=== PATIENT | male | born 1950 | race Caucasian/White ===

== ENCOUNTER 2016-07-23 15:50 | Inpatient (IN) | payer MEDICARE, OTHER ==
[~2016-07-23] VITALS: Ht 180.3 cm; Wt 89.8 kg
[2016-07-23 16:00] VITALS: BP 136/83
[2016-07-23] MEDS ORDERED: IPRATROPIUM BROMIDE 0.5 MG/2.5 ML NEB SOLUTION NEB PRN (17:15)
[2016-07-23] MEDS ORDERED: ACETAMINOPHEN 325 MG TABLET PO PRN (17:15)
[2016-07-23] MEDS ORDERED: ALBUTEROL SULFATE 2.5 MG/0.5 ML NEB SOLUTION NEB PRN (17:15)
[2016-07-23 18:29] LABS: APPEARANCE,URINE CLOUDY (CLEAR); GLUCOSE, URINE (UA) NEGATIVE (NEGATIVE); KETONES,URINE NEGATIVE (NEGATIVE); LEUKOCYTE ESTERASE ,URINE LARGE (NEGATIVE); OCCULT BLOOD,URINE SMALL (NEGATIVE); PROTEIN,URINE NEGATIVE (NEGATIVE)
[2016-07-23 18:35] LABS: ADD UA MICROSCOPIC YES; SQUAMOUS EPITHELIAL CELL,UR Rare /LPF (None Seen); WBC,URINE >100 /HPF (0-5)
[2016-07-23] MEDS: RIVAROXABAN 20 MG TABLET PO SCH (19:36)
[2016-07-23] MEDS: SENNA 187 MG TABLET PO SCH (20:39)
[2016-07-23] MEDS: DOXAZOSIN MESYLATE 2 MG TABLET PO SCH (20:39)
[2016-07-23] MEDS: ATORVASTATIN CALCIUM 40 MG TABLET PO SCH (20:39)
[2016-07-23] MEDS: DOCUSATE SODIUM 100 MG CAPSULE PO SCH (20:39)
[2016-07-23] MEDS ORDERED: QUEtiapine FUMARATE 25 MG TABLET PO SCH (21:00)
[2016-07-24 00:28] VITALS: BP 100/60
[2016-07-24 06:43] LABS: BASOPHILS % (AUTO) 0.7 % (0.0-2.0); EOSINOPHILS % (AUTO) 2.6 % (1.0-6.0); HEMATOCRIT 46.2 % (41-53); HEMOGLOBIN 14.7 g/dL (13.5-17.5); LYMPHOCYTES # (AUTO) 1.8 K/uL (1.0-4.8); LYMPHOCYTES % (AUTO) 20.2 % (22.0-44.0); MEAN CORPUSCULAR HEMOGLOBIN 29.2 pg (26.0-34.0); MEAN CORPUSCULAR HGB CONC 31.7 G/dL (31.0-37.0); MEAN CORPUSCULAR VOLUME 92 fL (80-100); MONOCYTES % (AUTO) 11.3 % (2.0-9.0); NEUTROPHILS # (AUTO) 5.8 K/uL (1.8-7.7); NEUTROPHILS % (AUTO) 65.2 % (40.0-70.0); PLATELET COUNT (AUTO) 135 K/uL (150-450); RED BLOOD CELL COUNT(AUTO) 5.03 MIL/uL (4.50-5.90); RED CELL DISTRIBUTION WIDTH 14.3 % (11.5-14.5); WHITE BLOOD COUNT (AUTO) 8.9 K/uL (4.5-11.0)
[2016-07-24 07:05] LABS: ALANINE AMINOTRANSFERASE 27 U/L (12-78); ALBUMIN 3.5 g/dL (3.4-5.0); ANION GAP 8 mmol/L (8-16); ASPARTATE AMINOTRANSFERASE 12 U/L (15-37); BILIRUBIN,TOTAL 0.7 mg/dL (0.1-1.0); CARBON DIOXIDE 29 mmol/L (22-29); CHLORIDE 102 mmol/L (98-107); CREATININE 1.12 mg/dL (0.60-1.30); GLOMERULAR FILTR. RATE CALC > 60 mL/min (>60); POTASSIUM 3.8 mmol/L (3.5-5.1); SODIUM SERUM 139 mmol/L (136-145); TOTAL PROTEIN, SERUM 7.2 g/dL (6.4-8.2); UREA NITROGEN, BLOOD 12 mg/dL (7-18)
[2016-07-24 07:15] VITALS: BP 131/82
[2016-07-24] MEDS: ARIPiprazole 5 MG TABLET PO SCH (08:36)
[2016-07-24] MEDS: ASPIRIN 81 MG CHEWABLE TABLET PO SCH (08:36)
[2016-07-24] MEDS: BuPROPion HCL 150 MG SR TABLET PO SCH ×2 (08:37→13:05)
[2016-07-24] MEDS: DOCUSATE SODIUM 100 MG CAPSULE PO SCH ×2 (08:37→21:10)
[2016-07-24] MEDS: DILTIAZEM HCL CD 120 MG ER CAPSULE PO SCH (08:37)
[2016-07-24 15:36] VITALS: BP 130/90
[2016-07-24] MEDS: RIVAROXABAN 20 MG TABLET PO SCH (17:13)
[2016-07-24] MEDS ORDERED: QUEtiapine FUMARATE 25 MG TABLET PO PRN (21:00)
[2016-07-24] MEDS: SENNA 187 MG TABLET PO SCH (21:10)
[2016-07-24] MEDS: ATORVASTATIN CALCIUM 40 MG TABLET PO SCH (21:10)
[2016-07-24] MEDS: DOXAZOSIN MESYLATE 2 MG TABLET PO SCH (21:10)
[2016-07-24 21:27] VITALS: BP 110/58
[2016-07-24 23:30] VITALS: BP 119/83
[2016-07-25 07:16] VITALS: BP 138/88
[2016-07-25] MEDS: BuPROPion HCL 150 MG SR TABLET PO SCH ×2 (08:11→11:44)
[2016-07-25] MEDS: DOCUSATE SODIUM 100 MG CAPSULE PO SCH ×2 (08:11→21:23)
[2016-07-25] MEDS: ASPIRIN 81 MG CHEWABLE TABLET PO SCH (08:11)
[2016-07-25] MEDS: ARIPiprazole 5 MG TABLET PO SCH (08:11)
[2016-07-25] MEDS: DILTIAZEM HCL CD 120 MG ER CAPSULE PO SCH (08:11)
[2016-07-25] MEDS: SULFAMETHOX/TRIMETH DS 800-160 MG/TABLET PO SCH ×2 (11:44→21:23)
[2016-07-25 15:38] VITALS: BP 153/89
[2016-07-25] MEDS: RIVAROXABAN 20 MG TABLET PO SCH (16:41)
[2016-07-25 20:30] VITALS: BP 96/54
[2016-07-25] MEDS: DOXAZOSIN MESYLATE 2 MG TABLET PO SCH ×2 (21:00→21:24)
[2016-07-25] MEDS: ATORVASTATIN CALCIUM 40 MG TABLET PO SCH (21:23)
[2016-07-25] MEDS: SENNA 187 MG TABLET PO SCH (21:23)
[2016-07-26] VITALS: BP 91/61
[2016-07-26 06:00] VITALS: BP 110/67
[2016-07-26 07:30] VITALS: BP 120/87
[2016-07-26 07:47] LABS: ANION GAP 7 mmol/L (8-16); CALCIUM, TOTAL 8.9 mg/dL (8.8-10.5); CARBON DIOXIDE 28 mmol/L (22-29); CHLORIDE 101 mmol/L (98-107); CREATININE 1.03 mg/dL (0.60-1.30); GLOMERULAR FILTR. RATE CALC > 60 mL/min (>60); SODIUM SERUM 136 mmol/L (136-145); UREA NITROGEN, BLOOD 14 mg/dL (7-18)
[2016-07-26] MEDS: DOCUSATE SODIUM 100 MG CAPSULE PO SCH ×2 (08:43→20:16)
[2016-07-26] MEDS: DILTIAZEM HCL CD 120 MG ER CAPSULE PO SCH (08:43)
[2016-07-26] MEDS: ARIPiprazole 5 MG TABLET PO SCH (08:43)
[2016-07-26] MEDS: BuPROPion HCL 150 MG SR TABLET PO SCH ×2 (08:44→12:37)
[2016-07-26] MEDS: ASPIRIN 81 MG CHEWABLE TABLET PO SCH (08:44)
[2016-07-26] MEDS: SULFAMETHOX/TRIMETH DS 800-160 MG/TABLET PO SCH ×2 (08:44→20:16)
[2016-07-26 15:07] VITALS: BP 107/71
[2016-07-26] MEDS: APIXABAN 5 MG TABLET PO SCH (20:16)
[2016-07-26] MEDS: SENNA 187 MG TABLET PO SCH (20:16)
[2016-07-26] MEDS: ATORVASTATIN CALCIUM 40 MG TABLET PO SCH (20:16)
[2016-07-26] MEDS: DOXAZOSIN MESYLATE 2 MG TABLET PO SCH (20:16)
[2016-07-26 20:20] VITALS: BP 110/78
[2016-07-27] VITALS (10 sets, daily range): BP systolic 97–129; BP diastolic 60–96
[2016-07-27 07:05] LABS: ANION GAP 7 mmol/L (8-16); CARBON DIOXIDE 27 mmol/L (22-29); CHLORIDE 101 mmol/L (98-107); CREATININE 0.94 mg/dL (0.60-1.30); GLOMERULAR FILTR. RATE CALC > 60 mL/min (>60); POTASSIUM 4.2 mmol/L (3.5-5.1); SODIUM SERUM 135 mmol/L (136-145); UREA NITROGEN, BLOOD 12 mg/dL (7-18)
[2016-07-27] MEDS: DOCUSATE SODIUM 100 MG CAPSULE PO SCH ×2 (08:34→20:23)
[2016-07-27] MEDS: ARIPiprazole 5 MG TABLET PO SCH (08:34)
[2016-07-27] MEDS: SULFAMETHOX/TRIMETH DS 800-160 MG/TABLET PO SCH ×2 (08:34→20:23)
[2016-07-27] MEDS: ASPIRIN 81 MG CHEWABLE TABLET PO SCH (08:34)
[2016-07-27] MEDS: BuPROPion HCL 150 MG SR TABLET PO SCH ×2 (08:35→12:18)
[2016-07-27] MEDS: DILTIAZEM HCL CD 120 MG ER CAPSULE PO SCH ×4 (08:35→12:23)
[2016-07-27] MEDS: APIXABAN 5 MG TABLET PO SCH ×2 (08:35→20:23)
[2016-07-27] MEDS: DOXAZOSIN MESYLATE 2 MG TABLET PO SCH (20:23)
[2016-07-27] MEDS: ATORVASTATIN CALCIUM 40 MG TABLET PO SCH (20:23)
[2016-07-27] MEDS: SENNA 187 MG TABLET PO SCH (20:23)
[2016-07-27] MEDS: DOCUSATE SODIUM 283 MG/5 ML MINI-ENEMA PR PRN (20:33)
[2016-07-28 07:08] LABS: ANION GAP 8 mmol/L (8-16); CALCIUM, TOTAL 8.9 mg/dL (8.8-10.5); CARBON DIOXIDE 27 mmol/L (22-29); CHLORIDE 100 mmol/L (98-107); GLOMERULAR FILTR. RATE CALC > 60 mL/min (>60); POTASSIUM 3.9 mmol/L (3.5-5.1); SODIUM SERUM 135 mmol/L (136-145); UREA NITROGEN, BLOOD 14 mg/dL (7-18)
[2016-07-28 07:35] VITALS: BP 113/72
[2016-07-28 08:30] VITALS: BP 126/88
[2016-07-28] MEDS: BuPROPion HCL 150 MG SR TABLET PO SCH ×2 (08:30→11:12)
[2016-07-28] MEDS: DOCUSATE SODIUM 100 MG CAPSULE PO SCH ×2 (08:30→20:29)
[2016-07-28] MEDS: SULFAMETHOX/TRIMETH DS 800-160 MG/TABLET PO SCH ×2 (08:30→20:29)
[2016-07-28] MEDS: ASPIRIN 81 MG CHEWABLE TABLET PO SCH (08:30)
[2016-07-28] MEDS: DILTIAZEM HCL CD 120 MG ER CAPSULE PO SCH (08:32)
[2016-07-28] MEDS: APIXABAN 5 MG TABLET PO SCH ×2 (08:32→20:29)
[2016-07-28] MEDS: ARIPiprazole 5 MG TABLET PO SCH (08:32)
[2016-07-28 15:19] VITALS: BP 124/75
[2016-07-28] MEDS: DOCUSATE SODIUM 283 MG/5 ML MINI-ENEMA PR PRN (18:14)
[2016-07-28 20:27] VITALS: BP 107/71
[2016-07-28] MEDS: ATORVASTATIN CALCIUM 40 MG TABLET PO SCH (20:29)
[2016-07-28] MEDS: DOXAZOSIN MESYLATE 2 MG TABLET PO SCH (20:29)
[2016-07-28] MEDS: SENNA 187 MG TABLET PO SCH (20:29)
[2016-07-28 23:00] VITALS: BP 107/59
[2016-07-28 23:34] VITALS: BP 138/98
[2016-07-29 07:37] VITALS: BP 115/75
[2016-07-29] MEDS: DOCUSATE SODIUM 250 MG CAPSULE PO SCH ×2 (08:28→21:16)
[2016-07-29] MEDS: ARIPiprazole 5 MG TABLET PO SCH (08:29)
[2016-07-29] MEDS: ASPIRIN 81 MG CHEWABLE TABLET PO SCH (08:29)
[2016-07-29] MEDS: DILTIAZEM HCL CD 120 MG ER CAPSULE PO SCH (08:29)
[2016-07-29] MEDS: APIXABAN 5 MG TABLET PO SCH ×2 (08:30→21:16)
[2016-07-29] MEDS: SULFAMETHOX/TRIMETH DS 800-160 MG/TABLET PO SCH ×2 (08:30→21:16)
[2016-07-29] MEDS: BuPROPion HCL 150 MG SR TABLET PO SCH ×2 (08:30→12:27)
[2016-07-29 15:00] VITALS: BP 132/71
[2016-07-29] MEDS: DOCUSATE SODIUM 283 MG/5 ML MINI-ENEMA PR PRN (19:21)
[2016-07-29] MEDS: DOXAZOSIN MESYLATE 2 MG TABLET PO SCH (21:00)
[2016-07-29 21:10] VITALS: BP 94/59
[2016-07-29] MEDS: ATORVASTATIN CALCIUM 40 MG TABLET PO SCH (21:16)
[2016-07-29] MEDS: SENNA 187 MG TABLET PO SCH (21:17)
[2016-07-29 23:51] VITALS: BP 96/60
[2016-07-30 07:25] VITALS: BP 115/71
[2016-07-30] MEDS: DIGOXIN 125 MCG TABLET PO SCH (08:29)
[2016-07-30] MEDS: SULFAMETHOX/TRIMETH DS 800-160 MG/TABLET PO SCH ×2 (08:29→20:10)
[2016-07-30] MEDS: BuPROPion HCL 150 MG SR TABLET PO SCH ×2 (08:29→12:31)
[2016-07-30] MEDS: APIXABAN 5 MG TABLET PO SCH ×2 (08:29→20:10)
[2016-07-30] MEDS: DILTIAZEM HCL CD 120 MG ER CAPSULE PO SCH (08:29)
[2016-07-30] MEDS: ARIPiprazole 5 MG TABLET PO SCH (08:29)
[2016-07-30] MEDS: ASPIRIN 81 MG CHEWABLE TABLET PO SCH (08:29)
[2016-07-30] MEDS: DOCUSATE SODIUM 250 MG CAPSULE PO SCH ×2 (08:29→20:10)
[2016-07-30 16:53] VITALS: BP 112/71
[2016-07-30] MEDS: ATORVASTATIN CALCIUM 40 MG TABLET PO SCH (20:10)
[2016-07-30] MEDS: SENNA 187 MG TABLET PO SCH (20:10)
[2016-07-30] MEDS: DOXAZOSIN MESYLATE 2 MG TABLET PO SCH (20:10)
[2016-07-30 20:13] VITALS: BP 137/53
[2016-07-31 00:22] VITALS: BP 110/54
[2016-07-31 07:42] VITALS: BP 104/66
[2016-07-31] MEDS: DOCUSATE SODIUM 250 MG CAPSULE PO SCH ×2 (09:20→20:33)
[2016-07-31] MEDS: ASPIRIN 81 MG CHEWABLE TABLET PO SCH (09:20)
[2016-07-31] MEDS: DILTIAZEM HCL CD 120 MG ER CAPSULE PO SCH (09:20)
[2016-07-31] MEDS: SULFAMETHOX/TRIMETH DS 800-160 MG/TABLET PO SCH ×2 (09:20→20:32)
[2016-07-31] MEDS: DIGOXIN 125 MCG TABLET PO SCH (09:21)
[2016-07-31] MEDS: ARIPiprazole 5 MG TABLET PO SCH (09:21)
[2016-07-31] MEDS: APIXABAN 5 MG TABLET PO SCH ×2 (09:21→20:33)
[2016-07-31] MEDS: BuPROPion HCL 150 MG SR TABLET PO SCH ×2 (09:21→13:10)
[2016-07-31 10:35] VITALS: BP 128/95
[2016-07-31 14:52] VITALS: BP 111/74
[2016-07-31] MEDS: DOCUSATE SODIUM 283 MG/5 ML MINI-ENEMA PR PRN (18:05)
[2016-07-31] MEDS ORDERED: PHENYLEPHRINE/SHK LV/MIN OIL/PET 57 GM OINTMENT TP PRN (18:30)
[2016-07-31] MEDS ORDERED: LACTULOSE 20 GM/30 ML SOLUTION UDCUP PO PRN (18:30)
[2016-07-31 20:30] VITALS: BP 115/80
[2016-07-31] MEDS: SENNA 187 MG TABLET PO SCH (20:32)
[2016-07-31] MEDS: ATORVASTATIN CALCIUM 40 MG TABLET PO SCH (20:32)
[2016-07-31] MEDS: DOXAZOSIN MESYLATE 2 MG TABLET PO SCH (20:32)
[2016-07-31] MEDS: LACTULOSE 20 GM/30 ML SOLUTION UDCUP PO PRN (20:35)
[2016-08-01 00:50] VITALS: BP 125/71
[2016-08-01 08:41] VITALS: BP 104/64
[2016-08-01] MEDS: ARIPiprazole 5 MG TABLET PO SCH (08:49)
[2016-08-01] MEDS: ASPIRIN 81 MG CHEWABLE TABLET PO SCH (08:49)
[2016-08-01] MEDS: DOCUSATE SODIUM 250 MG CAPSULE PO SCH ×3 (08:50→19:49)
[2016-08-01] MEDS: SULFAMETHOX/TRIMETH DS 800-160 MG/TABLET PO SCH ×2 (08:50→19:46)
[2016-08-01] MEDS: APIXABAN 5 MG TABLET PO SCH ×2 (08:50→19:46)
[2016-08-01] MEDS: DILTIAZEM HCL CD 120 MG ER CAPSULE PO SCH (08:50)
[2016-08-01] MEDS: DIGOXIN 125 MCG TABLET PO SCH (08:50)
[2016-08-01] MEDS: BuPROPion HCL 150 MG SR TABLET PO SCH ×2 (08:51→12:56)
[2016-08-01] MEDS: POLYETHYLENE GLYCOL 3350 17 GM PACKET PO SCH (10:49)
[2016-08-01 15:00] VITALS: BP 110/72
[2016-08-01] MEDS: SENNA 187 MG TABLET PO SCH (19:46)
[2016-08-01] MEDS: ATORVASTATIN CALCIUM 40 MG TABLET PO SCH (19:46)
[2016-08-01] MEDS: DOXAZOSIN MESYLATE 2 MG TABLET PO SCH (19:46)
[2016-08-02] VITALS: BP 121/70
[2016-08-02 07:28] VITALS: BP 112/77
[2016-08-02] MEDS: ARIPiprazole 5 MG TABLET PO SCH (08:35)
[2016-08-02] MEDS: DOCUSATE SODIUM 250 MG CAPSULE PO SCH ×2 (08:35→21:33)
[2016-08-02] MEDS: ASPIRIN 81 MG CHEWABLE TABLET PO SCH (08:35)
[2016-08-02] MEDS: POLYETHYLENE GLYCOL 3350 17 GM PACKET PO SCH (08:35)
[2016-08-02] MEDS: SULFAMETHOX/TRIMETH DS 800-160 MG/TABLET PO SCH ×2 (08:36→21:32)
[2016-08-02] MEDS: APIXABAN 5 MG TABLET PO SCH ×2 (08:36→21:32)
[2016-08-02] MEDS: DILTIAZEM HCL CD 120 MG ER CAPSULE PO SCH (08:36)
[2016-08-02] MEDS: DIGOXIN 125 MCG TABLET PO SCH (08:36)
[2016-08-02] MEDS: BuPROPion HCL 150 MG SR TABLET PO SCH ×2 (08:38→12:25)
[2016-08-02 18:46] VITALS: BP 114/86
[2016-08-02] MEDS: DOXAZOSIN MESYLATE 2 MG TABLET PO SCH (21:32)
[2016-08-02] MEDS: SENNA 187 MG TABLET PO SCH (21:33)
[2016-08-02] MEDS: ATORVASTATIN CALCIUM 40 MG TABLET PO SCH (21:33)
[2016-08-02 23:06] VITALS: BP 108/62
[2016-08-03] VITALS: BP 129/78
[2016-08-03] MEDS: DOCUSATE SODIUM 283 MG/5 ML MINI-ENEMA PR PRN (02:20)
[2016-08-03] MEDS: LACTULOSE 20 GM/30 ML SOLUTION UDCUP PO PRN (05:50)
[2016-08-03 07:30] VITALS: BP 132/92
[2016-08-03] MEDS: DOCUSATE SODIUM 250 MG CAPSULE PO SCH ×2 (08:36→20:40)
[2016-08-03] MEDS: APIXABAN 5 MG TABLET PO SCH ×2 (08:36→20:40)
[2016-08-03] MEDS: DIGOXIN 125 MCG TABLET PO SCH (08:36)
[2016-08-03] MEDS: ARIPiprazole 5 MG TABLET PO SCH (08:36)
[2016-08-03] MEDS: POLYETHYLENE GLYCOL 3350 17 GM PACKET PO SCH (08:36)
[2016-08-03] MEDS: BuPROPion HCL 150 MG SR TABLET PO SCH ×2 (08:39→12:34)
[2016-08-03] MEDS: DILTIAZEM HCL CD 120 MG ER CAPSULE PO SCH (08:40)
[2016-08-03] MEDS: ASPIRIN 81 MG CHEWABLE TABLET PO SCH (08:40)
[2016-08-03] MEDS: SULFAMETHOX/TRIMETH DS 800-160 MG/TABLET PO SCH (08:40)
[2016-08-03 15:38] VITALS: BP 107/70
[2016-08-03] MEDS: SENNA 187 MG TABLET PO SCH (20:40)
[2016-08-03] MEDS: DOXAZOSIN MESYLATE 2 MG TABLET PO SCH (20:40)
[2016-08-03] MEDS: ATORVASTATIN CALCIUM 40 MG TABLET PO SCH (20:40)
[2016-08-03 23:45] VITALS: BP 138/85
[2016-08-04 08:00] VITALS: BP 99/59
[2016-08-04] MEDS: DIGOXIN 125 MCG TABLET PO SCH (08:50)
[2016-08-04] MEDS: POLYETHYLENE GLYCOL 3350 17 GM PACKET PO SCH (08:50)
[2016-08-04] MEDS: DILTIAZEM HCL CD 120 MG ER CAPSULE PO SCH (08:50)
[2016-08-04] MEDS: BuPROPion HCL 150 MG SR TABLET PO SCH ×2 (08:50→12:37)
[2016-08-04] MEDS: ARIPiprazole 5 MG TABLET PO SCH (08:50)
[2016-08-04] MEDS: ASPIRIN 81 MG CHEWABLE TABLET PO SCH (08:51)
[2016-08-04] MEDS: APIXABAN 5 MG TABLET PO SCH ×2 (08:52→20:22)
[2016-08-04] MEDS: DOCUSATE SODIUM 250 MG CAPSULE PO SCH ×2 (08:52→20:22)
[2016-08-04 15:18] VITALS: BP 106/61
[2016-08-04] MEDS: SENNA 187 MG TABLET PO SCH (20:22)
[2016-08-04] MEDS: ATORVASTATIN CALCIUM 40 MG TABLET PO SCH (20:22)
[2016-08-04] MEDS: DOXAZOSIN MESYLATE 2 MG TABLET PO SCH (20:22)
[2016-08-05] VITALS: BP 106/73
[2016-08-05] MEDS ORDERED: QUET25TA PO (01:40)
[2016-08-05] MEDS ORDERED: ARIP5TAB9 PO (01:40)
[2016-08-05] MEDS ORDERED: DOXA2TAB PO (01:40)
[2016-08-05] MEDS ORDERED: BUPR100SR PO (01:40)
[2016-08-05] MEDS ORDERED: WARF1 PO (01:40)
[2016-08-05] MEDS ORDERED: ATOR40TA28 PO (01:40)
[2016-08-05 02:00] LABS: APPEARANCE,URINE CLEAR (CLEAR); GLUCOSE, URINE (UA) NEGATIVE (NEGATIVE); KETONES,URINE NEGATIVE (NEGATIVE); LEUKOCYTE ESTERASE ,URINE NEGATIVE (NEGATIVE); OCCULT BLOOD,URINE NEGATIVE (NEGATIVE); PROTEIN,URINE NEGATIVE (NEGATIVE)
[2016-08-05 03:10] LABS: RBC,URINE None Seen /HPF (0-2); WBC,URINE None Seen /HPF (0-5)
[2016-08-05 08:35] VITALS: BP 112/72
[2016-08-05] MEDS: DOCUSATE SODIUM 250 MG CAPSULE PO SCH ×2 (08:45→20:21)
[2016-08-05] MEDS: BuPROPion HCL 150 MG SR TABLET PO SCH ×2 (08:45→12:39)
[2016-08-05] MEDS: ASPIRIN 81 MG CHEWABLE TABLET PO SCH (08:45)
[2016-08-05] MEDS: DILTIAZEM HCL CD 120 MG ER CAPSULE PO SCH (08:45)
[2016-08-05] MEDS: ARIPiprazole 5 MG TABLET PO SCH (08:45)
[2016-08-05] MEDS: DIGOXIN 125 MCG TABLET PO SCH (08:45)
[2016-08-05] MEDS: APIXABAN 5 MG TABLET PO SCH ×2 (08:45→20:21)
[2016-08-05] MEDS: POLYETHYLENE GLYCOL 3350 17 GM PACKET PO SCH (08:46)
[2016-08-05 16:13] VITALS: BP 98/63
[2016-08-05] MEDS: DOXAZOSIN MESYLATE 2 MG TABLET PO SCH (20:21)
[2016-08-05] MEDS: SENNA 187 MG TABLET PO SCH (20:21)
[2016-08-05] MEDS: ATORVASTATIN CALCIUM 40 MG TABLET PO SCH (20:21)
[2016-08-05 20:22] VITALS: BP 130/54
[2016-08-06] MEDS ORDERED: BUPR100SR PO (03:38)
[2016-08-06 03:41] VITALS: BP 121/58
[2016-08-06] MEDS ORDERED: MIRALAX PO (03:41)
[2016-08-06] MEDS ORDERED: DILT120C3 PO (03:44)
[2016-08-06] MEDS ORDERED: ASPI-1093 PO (03:44)
[2016-08-06] MEDS ORDERED: DIGO125T PO (03:44)
[2016-08-06] MEDS ORDERED: DOCU250C91 PO (03:44)
[2016-08-06] MEDS ORDERED: APIX5TAB PO (03:44)
[2016-08-06 07:25] VITALS: BP 100/67
[2016-08-06 09:00] VITALS: BP 108/79
[2016-08-06] MEDS: ARIPiprazole 5 MG TABLET PO SCH (09:01)
[2016-08-06] MEDS: ASPIRIN 81 MG CHEWABLE TABLET PO SCH (09:01)
[2016-08-06] MEDS: DOCUSATE SODIUM 250 MG CAPSULE PO SCH (09:01)
[2016-08-06] MEDS: APIXABAN 5 MG TABLET PO SCH (09:01)
[2016-08-06] MEDS: POLYETHYLENE GLYCOL 3350 17 GM PACKET PO SCH (09:01)
[2016-08-06] MEDS: BuPROPion HCL 150 MG SR TABLET PO SCH ×2 (09:02→11:53)
[2016-08-06] MEDS: DIGOXIN 125 MCG TABLET PO SCH (09:02)
[2016-08-06] MEDS: DILTIAZEM HCL CD 120 MG ER CAPSULE PO SCH (09:02)
== END 2016-08-06 17:50 | disposition home health service (06) | DRG 64 ==
LOC: 2WR 15:50
PROVIDERS: ADMIT Physical Medicine & Rehabilitation; ATTEND Physical Medicine & Rehabilitation
DX: I61.5 Nontraumatic intracerebral hemorrhage, intraventricular (principal); I63.9 Cerebral infarction, unspecified; I48.92 Unspecified atrial flutter; R45.851 Suicidal ideations; N39.0 Urinary tract infection, site not specified; D69.6 Thrombocytopenia, unspecified; E78.5 Hyperlipidemia, unspecified; H91.90 Unspecified hearing loss, unspecified ear; I25.10 Atherosclerotic heart disease of native coronary artery without angina pectoris; I35.0 Nonrheumatic aortic (valve) stenosis; I71.4 Abdominal aortic aneurysm, without rupture; I73.9 Peripheral vascular disease, unspecified; J44.9 Chronic obstructive pulmonary disease, unspecified; N40.0 Benign prostatic hyperplasia without lower urinary tract symptoms; Z87.820 Personal history of traumatic brain injury; Z87.891 Personal history of nicotine dependence; Z91.19 Patient's noncompliance with other medical treatment and regimen; Z95.1 Presence of aortocoronary bypass graft; F32.9 Major depressive disorder, single episode, unspecified; Z86.718 Personal history of other venous thrombosis and embolism; K59.00 Constipation, unspecified; I10 Essential (primary) hypertension; I48.0 Paroxysmal atrial fibrillation
CPT/HCPCS: 87081; 87086; 92507; 92508; 92523; 93005; 97110; 97112; 97116; 97150; 97162; 97167; 97530; 97535; 99366